=== PATIENT | male | born 1965 | race Caucasian/White ===

== ENCOUNTER 2019-05-29 11:56 | Day surgery (SDC) | payer OTHER ==
[~2019-05-29] VITALS: Ht 165.1 cm; Wt 99.9 kg
[~2019-05-29 11:56] MED LIST: ASPIRIN; GLIMEPIRIDE; JANUVIA; METFORMIN
[2019-05-29 13:04] VITALS: Ht 165.1 cm; Wt 99.9 kg
[2019-05-29 13:33] VITALS: BP 124/82; PULSE 91; RESP 18
[2019-05-29] MEDS ORDERED: PROPOFOL 200 MG INJ ONE (14:00)
[2019-05-29] MEDS ORDERED: PROPOFOL 20 ML ONE (14:09)
[2019-05-29] MEDS ORDERED: FENTAnyl 50 MCG/ML VIAL ONE (14:09)
[2019-05-29] MEDS ORDERED: LIDOCAINE 2% (SDV) 5 ML INJ ONE (14:09)
[2019-05-29] MEDS ORDERED: MIDAZOLAM 1 MG/ML 2 ML INJ ONE (14:09)
[2019-05-29 15:01] VITALS: BP 99/73; RESP 20
== END 2019-05-29 15:29 | disposition home or self-care (01) ==
LOC: GIL 11:56
PROVIDERS: ATTEND Internal Medicine Gastroenterology
DX: Z12.11 Encounter for screening for malignant neoplasm of colon (principal); K57.30 Diverticulosis of large intestine without perforation or abscess without bleeding
CPT/HCPCS: 45378; 82962; J2250; J3010; Z7610